=== PATIENT | female | born 1975 ===

== ENCOUNTER 2018-04-09 19:24 | Emergency (ER) | payer OTHER ==
[~2018-04-09] VITALS: Ht 152.4 cm; Wt 90.7 kg
[~2018-04-09 19:24] MED LIST: LODINE500 MG; ZANAFLEX2 M1
== END 2018-04-09 22:45 | disposition home or self-care (01) ==
LOC: ER 19:24
DX: R10.2 Pelvic and perineal pain (principal)

== ENCOUNTER 2020-03-04 10:45 | Inpatient (IN) | payer OTHER ==
[~2020-03-04] VITALS: Ht 165.1 cm; Wt 95.3 kg
[2020-03-04] MEDS ORDERED: LOSARTAN-HCTZ1 EAC2 (10:52)
== END 2020-03-08 12:58 | disposition designated cancer center or children's hospital (05) | DRG 282 ==
LOC: ER 10:45 → SURH 13:02
PROVIDERS: ADMIT Internal Medicine
PROC: B246ZZZ Ultrasonography of Right and Left Heart (ICD-10-PCS; principal; 2020-03-04)
PROC: B54NZZZ Ultrasonography of Left Upper Extremity Veins (ICD-10-PCS; 2020-03-05)
PROC: CB2YYZZ Tomographic (Tomo) Nuclear Medicine Imaging of Respiratory System using Other Radionuclide (ICD-10-PCS; 2020-03-06)
DX: I21.4 Non-ST elevation (NSTEMI) myocardial infarction (principal); I10 Essential (primary) hypertension; E66.9 Obesity, unspecified; Z68.34 Body mass index [BMI] 34.0-34.9, adult; Z71.3 Dietary counseling and surveillance; Z86.718 Personal history of other venous thrombosis and embolism; Z79.01 Long term (current) use of anticoagulants
CPT/HCPCS: 71275